=== PATIENT | female | born 1970 | race Hispanic/Latino ===

== ENCOUNTER 2025-03-15 17:48 | Emergency (ER) | payer MEDICARE, OTHER ==
[~2025-03-15] VITALS: Ht 142.2 cm; Wt 60.3 kg
[2025-03-15] MEDS ORDERED: HYDROCHLOROTHIA25 MG (19:10)
[2025-03-15] MEDS ORDERED: SYMBICORT 16010.2 GM INH (19:10)
[2025-03-15] MEDS ORDERED: POTASSIUM CHLO20 ME1 PO (19:10)
[2025-03-15] MEDS ORDERED: KEPPRA500 MG PO (19:10)
[2025-03-15] MEDS ORDERED: VOLTAREN ARTHRI20 GM (19:10)
[2025-03-15] MEDS ORDERED: XCOPRI (19:10)
[2025-03-15] MEDS ORDERED: PRAVASTATIN SOD40 MG (19:10)
[2025-03-15] MEDS ORDERED: LOSARTAN POTAS100 MG PO (19:10)
[2025-03-15] MEDS ORDERED: MONTELUKAST SOD10 MG PO (19:10)
[2025-03-15] MEDS ORDERED: VENTOLIN HFA18 GM INH (19:10)
[2025-03-15] MEDS ORDERED: FLONASE ALLERG9.9 ML INH (19:10)
[2025-03-15] MEDS ORDERED: IBUPROFEN600 MG PO (20:47)
[2025-03-15 20:52] VITALS: PULSE 86; RESP 16; TEMP 97.7
[2025-03-15 20:54] VITALS: BP 141/68; PULSE 86; RESP 16; TEMP 97.7; O2SAT 97
== END 2025-03-15 20:58 | disposition home or self-care (01) ==
LOC: FSED 17:53
DX: M79.605 Pain in left leg (principal); M79.604 Pain in right leg; I10 Essential (primary) hypertension; E78.5 Hyperlipidemia, unspecified; G40.909 Epilepsy, unspecified, not intractable, without status epilepticus; J45.909 Unspecified asthma, uncomplicated; R62.50 Unspecified lack of expected normal physiological development in childhood
CPT/HCPCS: 93970; 99284